=== PATIENT | male | born 1985 | race American Indian/Alaskan Native ===

== ENCOUNTER 2017-01-15 04:19 | Emergency (ER) | payer SELFPAY ==
[2017-01-15] MEDS ORDERED: NACL 0.9% 1000 ML 1,000 ML IV ONE (05:13)
[2017-01-15] MEDS ORDERED: TORADOL IV ONE (05:13)
[2017-01-15] MEDS ORDERED: ZOFRAN IV ONE (05:13)
--- NOTE | 2017-01-15 05:34 | Emergency Department Report ---
HPI - HPI HPI: 31-year-old -[place] male comes in with complaint of lower back pain 1 day. He denies any nausea no vomiting no fever no chills. Patient reports that he is having difficulty urinating as well. He reports that the pain comes and goes. He reports no past medical history currently takes no medications has no known drug allergies <DEBLAKISHABEVERLEY Smith - Last Filed: 01/15/17 07:02> <ALISSA TURNER - Last Filed: 01/15/17 07:18> - General Chief Complaint: Back Pain/Injury Time Seen by Provider: 01/15/17 05:12 ED Past Medical Hx - Past Medical History Previous Medical History?: Yes Hx Asthma: Yes - Surgical History Past Surgical History?: No - Social History Smoking Status: Never Smoker Substance Use Type: Alcohol <DEBLAKISHARAJANFredi Smith - Last Filed: 01/15/17 07:02> <ALISSA TURNER - Last Filed: 01/15/17 07:18> - Medications Home Medications: Home Medications Medication Instructions Recorded Confirmed Last Taken Type Ibuprofen [Motrin 800 MG tab] 800 mg PO Q8HR PRN #30 tablet 01/15/17 Unknown Rx ED Review of Systems ROS: Stated complaint: LOWER BACK PAIN Other details as noted in HPI Constitutional: chills. denies: fever Eyes: denies: eye pain, eye discharge, vision change ENT: denies: ear pain, throat pain Respiratory: denies: cough, shortness of breath, wheezing Cardiovascular: denies: chest pain, palpitations Endocrine: no symptoms reported Gastrointestinal: denies: abdominal pain, nausea, diarrhea Genitourinary: urgency Musculoskeletal: back pain Skin: denies: rash, lesions Neurological: denies: headache, weakness, paresthesias Psychiatric: denies: anxiety, depression <DEBLAKISHARAJANFredi Luis - Last Filed: 01/15/17 07:02> ROS: Stated complaint: LOWER BACK PAIN Other details as noted in HPI <ALISSA TURNER - Last Filed: 01/15/17 07:18> Physical Exam - Physical Exam Vital Signs: Vital Signs 01/15/17 04:31 Temperature 98.2 F Pulse Rate 91 H Respiratory 20 Rate Blood Pressure 121/74 O2 Sat by Pulse 95 Oximetry Physical Exam: GENERAL: Alert and oriented x3, no apparent to be in pain, patient is not able to get comfortable. HEAD: Head is normocephalic and a-traumatic. EYES: Extra ocular muscles are intact. Pupils are equal, round, and reactive to light and accommodation. MOUTH:Mouth is well hydrated and without lesions. Tonsils nonerythematous or swollen, Uvula midline, Tongue not elevated. Mucous membranes are moist. Posterior pharynx clear, no exudate or lesions. Patent airways. NECK: Supple. Non edematous, No carotid bruits. No lymphadenopathy or thyromegaly. LUNGS: Symetrical with respiration, No wheezing, no rales or crackles, CTAB. HEART: S1, S2 present, regular rate and rhythm without murmur, no rubs, no gallops. ABDOMEN: No organomegaly was noted,Positive bowel sounds, soft, and non- distended. . Nontender to palpation on all Quadrants, left CVA tenderness. EXTREMITIES/MUSCULOSKELETAL: No cyanosis, clubbing, rash, lesions or edema. Full ROM bilaterally. UE/LE Pulses 2+ bilaterally. LE and UE 5+ strength bilaterally NEUROLOGIC: No focal Deficit, Cranial nerves II through XII are grossly intact. No loss of sensation, No facial droop, PSYCHIATRIC: Mood is congruent with affect, denies suicidal or homicidal ideations. SKIN: Warm and dry, No lesions, No ulceration or induration present <BEVERLEY RAMIREZ - Last Filed: 01/15/17 07:02> - Physical Exam Vital Signs: Vital Signs 01/15/17 04:31 Temperature 98.2 F Pulse Rate 91 H Respiratory 20 Rate Blood Pressure 121/74 O2 Sat by Pulse 95 Oximetry <ALISSA TURNER - Last Filed: 01/15/17 07:18> ED Course Vital Signs 01/15/17 04:31 Temperature 98.2 F Pulse Rate 91 H Respiratory 20 Rate Blood Pressure 121/74 O2 Sat by Pulse 95 Oximetry <BEVERLEY RAMIREZ - Last Filed: 01/15/17 07:02> Vital Signs 01/15/17 04:31 Temperature 98.2 F Pulse Rate 91 H Respiratory 20 Rate Blood Pressure 121/74 O2 Sat by Pulse 95 Oximetry <ALISSA TURNER - Last Filed: 01/15/17 07:18> ED Medical Decision Making - Lab Data Result diagrams: 01/15/17 Unknown 01/15/17 Unknown - Radiology Data Radiology results: report reviewed No acute trauma abdominal abnormalities. There is no kidney stones. No hydro nephrosis. - Medical Decision Making Patient has been evaluated by this provider fast track. Patient appears to be uncomfortable. He may have a kidney stone. Orders consist of IV insertion, normal saline 1000 mL liters, Toradol 30 mg IV, Zofran 4 mg IV ordered. CAT scan ordered for abdomen and pelvic concern for kidney stone. <BEVERLEY RAMIREZ - Last Filed: 01/15/17 07:02> - Lab Data Result diagrams: 01/15/17 Unknown 01/15/17 Unknown <ALISSA TURNER - Last Filed: 01/15/17 07:18> Critical care attestation.: If time is entered above; I have spent that time in minutes in the direct care of this critically ill patient, excluding procedure time. <BEVERLEY RAMIREZ - Last Filed: 01/15/17 07:02> Critical care attestation.: If time is entered above; I have spent that time in minutes in the direct care of this critically ill patient, excluding procedure time. <ALISSA TURNER - Last Filed: 01/15/17 07:18> ED Disposition Is pt being admited?: No Does the pt Need Aspirin: No <BEVERLEY RAMIREZ - Last Filed: 01/15/17 07:02> <ALISSA TURNER - Last Filed: 01/15/17 07:18> Clinical Impression: Back pain Qualifiers: Back pain location: low back pain Chronicity: unspecified Back pain laterality : unspecified Sciatica presence: unspecified whether sciatica present Qualified Code(s): M54.5 - Low back pain Disposition: DISCHARGED TO HOME OR SELFCARE Condition: Stable Instructions: Back Pain (ED) Additional Instructions: Please take Motrin for back pain. Follow-up with her primary care provider for further evaluation. Prescriptions: Ibuprofen [Motrin 800 MG tab] 800 mg PO Q8HR PRN #30 tablet PRN Reason: Pain Referrals: PRIMARY CARE,MD [Primary Care Provider] - 3-5 Days [facility] [Outside] - 3-5 Days
[2017-01-15 06:01] LABS: Bilirubin,Urine Negative (Negative); Blood,Urine Negative (Negative); Ketones,Urine Negative (Negative); Protein,Urine <15 mg/dL mg/dL (Negative)
[2017-01-15 06:02] LABS: Leukocyte Esterase,Urine Negative (Negative); Mucus,Urine 1+ /HPF; Nitrite,Urine Negative (Negative); Urobilinogen,Urine < 0.2 mg/dL (<2.0)
[2017-01-15 06:11] LABS: Basophils % (Auto) 0.7 % (0.0-1.8); Eosinophils % (Auto) 0.7 % (0.0-4.3); Hematocrit 41.8 % (35.5-45.6); Hemoglobin 14.3 gm/dl (11.8-15.2); Mean Corpuscular HGB Conc 34 % (32-34); Mean Corpuscular Hemoglobin 28 pg (28-32); Mean Corpuscular Volume 82 fl (84-94); Platelet Count 278 K/mm3 (140-440); Red Cell Distribution Width 13.7 % (13.2-15.2); White Blood Count 9.6 K/mm3 (4.5-11.0)
[2017-01-15 06:43] LABS: Alanine Aminotransferase 35 units/L (7-56); Albumin 4.1 g/dL (3.9-5); Albumin/Globulin Ratio 1.1 %; Alkaline Phosphatase 53 units/L (35-129); Anion Gap 16 mmol/L; BUN/Creatinine Ratio 12.22; Blood Urea Nitrogen 11 mg/dL (9-20); Calcium 9.6 mg/dL (8.4-10.2); Carbon Dioxide 28 mmol/L (22-30); Chloride 101.6 mmol/L (98-107); Glucose 87 mg/dL (75-100); Potassium 4.2 mmol/L (3.6-5.0); Sodium 141 mmol/L (137-145)
--- NOTE | 2017-01-15 06:48 | Cat Scan Report ---
FINAL REPORT PROCEDURE: CT ABDOMEN PELVIS WO CON TECHNIQUE: Computerized axial tomography of the abdomen and pelvis was performed without intravenous contrast. This study is performed without intravascular contrast material and its sensitivity for abdominal and pelvic pathology, including neoplasms, inflammation, abscess, free fluid, thrombosis, arterial dissection and infarction, is reduced compared with a contrast enhanced study. HISTORY: lower back pain concern for kidney stone lt side pain COMPARISON: No prior studies are available for comparison. FINDINGS: Visualized lower thorax: No significant abnormality. Liver: Normal size and attenuation. Spleen: Normal size and attenuation. Gallbladder and biliary system: Normal. Pancreas: Normal. Adrenals: Normal. Kidneys: There are no kidney stones. There is no hydronephrosis.. GI tract: Is no bowel obstruction, colitis or enteritis. Appendix is normal.. Lymph nodes and mesentery: Normal. Vasculature: Normal. Bladder: Normal. Reproductive organs: Normal. Peritoneum: There is no ascites or free air, abscess or adenopathy.. Musculoskeletal structures: No significant abnormality. Other: There is a left inguinal hernia containing fat only.. IMPRESSION: No acute intra-abdominal abnormality is demonstrated. There are no kidney or ureteral stones. There is no hydronephrosis..
[2017-01-15] MEDS ORDERED: DILAUDID IV ONE (06:52)
[2017-01-15] MEDS ORDERED: DILAUDID ONE (06:53)
[2017-01-15 08:19] VITALS: BP 120/70
== END 2017-01-15 08:19 | disposition home or self-care (01) ==
LOC: ED 04:19
DX: M54.5 Low back pain (principal); J45.909 Unspecified asthma, uncomplicated
CPT/HCPCS: 36415; 74176; 80053; 81001; 85025; 96361; 96374; 96375; 99284; J1170; J1885; J2405; J7030

== ENCOUNTER 2017-03-06 18:52 | Emergency (ER) | payer SELFPAY ==
[2017-03-06] MEDS ORDERED: FUL-GLO OP ONE ×2 (22:21→22:49)
[2017-03-06] MEDS ORDERED: TETRACAINE 0.5% ONE (22:22)
--- NOTE | 2017-03-06 22:22 | Emergency Department Report ---
ED Eye Problem HPI - General Chief complaint: Eye Problems Stated complaint: ACID IN FACE Time Seen by Provider: 03/06/17 21:43 Source: patient Mode of arrival: Ambulatory Limitations: No Limitations - History of Present Illness Initial comments: 31-year-old male past medical history asthma presents with complaint of losing his eyes to dust/metal particles while at work today. 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 He was not wearing safety glasses. During handling of the battery some of this debris flew up and hit him in both eyes. Patient states that he immediately irrigated his eyes thoroughly with water and was assisted by coworkers on site. Patient states this occurred this afternoon while at work. On exam patient is awake alert and oriented 3 has both eyes open not in acute distress. Primarily complaining of slightly blurry vision since this afternoon. States he has some foreign body sensation. Patient states that his left eye has become slightly red. States he has had some watery discharge from eyes. Patient accompanied by his girlfriend chief complaint: eye redness, other (dust/metal particles hitting eyes) -: This afternoon Onset Description: sudden Location: both eyes Place: work If Injury: other (handling a battery) Eye Symptoms: discharge, blurry vision Severity: moderate If Pain, Quality: burning - Related Data Previous Rx's Medication Instructions Recorded Last Taken Type Ibuprofen [Motrin] 600 mg PO Q8H PRN #15 tablet 03/06/17 Unknown Rx Polyvinyl Alcohol/Povidone 1 - 2 drop OP PRN #1 drops 03/06/17 Unknown Rx [Artificial Tears Drops 0.5/0.6 %] Tobramycin 0.3% [Tobrex] 1 drop OU Q4H #1 bottle 03/06/17 Unknown Rx Allergies Allergy/AdvReac Type Severity Reaction Status Date / Time No Known Allergies Allergy Verified 06/08/15 04:17 ED Review of Systems ROS: Stated complaint: ACID IN FACE Other details as noted in HPI Constitutional: denies: chills, fever Eyes: denies: eye pain, eye discharge, vision change ENT: denies: ear pain, throat pain Respiratory: denies: cough, shortness of breath, wheezing Cardiovascular: denies: chest pain, palpitations Endocrine: no symptoms reported Gastrointestinal: denies: abdominal pain, nausea, diarrhea Genitourinary: denies: urgency, dysuria Musculoskeletal: denies: back pain, joint swelling, arthralgia Skin: denies: rash, lesions Neurological: denies: headache, weakness, paresthesias Psychiatric: denies: anxiety, depression Hematological/Lymphatic: denies: easy bleeding, easy bruising ED Past Medical Hx - Past Medical History Hx Asthma: Yes - Surgical History Past Surgical History?: No - Social History Smoking Status: Never Smoker Substance Use Type: Alcohol - Medications Home Medications: Home Medications Medication Instructions Recorded Confirmed Last Taken Type Ibuprofen [Motrin] 600 mg PO Q8H PRN #15 tablet 03/06/17 Unknown Rx Polyvinyl Alcohol/Povidone 1 - 2 drop OP PRN #1 drops 03/06/17 Unknown Rx [Artificial Tears Drops 0.5/0.6 %] Tobramycin 0.3% [Tobrex] 1 drop OU Q4H #1 bottle 03/06/17 Unknown Rx ED Physical Exam - General Limitations: No Limitations General appearance: alert, in no apparent distress - Head Head exam: Present: atraumatic, normocephalic - Eye Eye exam: Present: normal appearance, PERRL, EOMI - Expanded Eye Exam Expanded Pupils: Regular, Round: Bilateral, Reactive: Bilateral Sclera/Conjunctival: Injection: Bilateral (mild conjunctival injection slightly worse on the left and right) Visual acuity (R) = 20/: 40 Visual acuity (L) = 20/: 30 With correction: No IOP (R) in mmH IOP (L) in mmH IOP measured with: Tonopen - ENT ENT exam: Present: mucous membranes moist - Neck Neck exam: Present: normal inspection - Respiratory Respiratory exam: Present: normal lung sounds bilaterally. Absent: respiratory distress - Cardiovascular Cardiovascular Exam: Present: regular rate, normal rhythm. Absent: systolic murmur, diastolic murmur, rubs, gallop - GI/Abdominal GI/Abdominal exam: Present: soft, normal bowel sounds - Rectal Rectal exam: Present: deferred - Extremities Exam Extremities exam: Present: normal inspection - Back Exam Back exam: Present: normal inspection - Neurological Exam Neurological exam: Present: alert, oriented X3 - Psychiatric Psychiatric exam: Present: normal affect, normal mood - Skin Skin exam: Present: warm, dry, intact, normal color. Absent: rash ED Course Vital Signs 03/06/17 19:22 Temperature 98.3 F Pulse Rate 76 Respiratory 16 Rate Blood Pressure 134/91 O2 Sat by Pulse 97 Oximetry ED Medical Decision Making - Medical Decision Making A/P: Corneal abrasions 1-no foreign body detected during my eye exam. Pupils are reactive to light bilaterally extraocular movements are fully intact bilaterally ,No highlighted foreign body on fluorescein stain either eye, no Vinnie sign on exam, visible abrasions on conjunctiva and lower aspect of both eyes. Not overlying the pupil region. Patient states he irrigated both eyes thoroughly immediately after exposure to these dust/rust particles. Intraocular pressure 12 right eye , 15 left eye. I applied pH paper to both eyes and it is in the range of 7 in both eyes. 2-tobramycin drops, artificial tears 3-patient's gross vision is intact, overall vision is 20/30 4- I advised patient to follow-up with an front desk supervisor and to return to the ED for any significant decrease in vision. Patient states he understood my instructions 5- tetanus updated today Critical care attestation.: If time is entered above; I have spent that time in minutes in the direct care of this critically ill patient, excluding procedure time. ED Disposition Clinical Impression: Corneal abrasion Qualifiers: Encounter type: initial encounter Laterality: unspecified laterality Qualified Code(s): S05.00XA - Injury of conjunctiva and corneal abrasion without foreign body, unspecified eye, initial encounter Disposition: -01 TO HOME OR SELFCARE Is pt being admited?: No Does the pt Need Aspirin: No Condition: Stable Instructions: Corneal Abrasion (ED) Prescriptions: Ibuprofen [Motrin] 600 mg PO Q8H PRN #15 tablet PRN Reason: Pain Polyvinyl Alcohol/Povidone [Artificial Tears Drops 0.5/0.6 %] 1 - 2 drop OP PRN #1 drops Tobramycin 0.3% [Tobrex] 1 drop OU Q4H #1 bottle Referrals: MARÍA ELENA VILCHIS MD [Staff Physician] - 3-5 Days HEATHER RAMACHANDRAN MD [Staff Physician] - 3-5 Days Forms: Accompanied Note, Work/School Release Form(ED) Time of Disposition: 22:52
[2017-03-06] MEDS ORDERED: BOOSTRIX IM ONE (22:49)
[2017-03-06] MEDS ORDERED: TETRACAINE 0.5% OU ONE (22:49)
[2017-03-06 23:07] VITALS: BP 139/83
== END 2017-03-06 23:00 | disposition home or self-care (01) ==
LOC: ED 18:52
DX: S05.02XA Injury of conjunctiva and corneal abrasion without foreign body, left eye, initial encounter (principal); S05.01XA Injury of conjunctiva and corneal abrasion without foreign body, right eye, initial encounter; J45.909 Unspecified asthma, uncomplicated; X58.XXXA Exposure to other specified factors, initial encounter; Y93.89 Activity, other specified; Y92.89 Other specified places as the place of occurrence of the external cause; Y99.8 Other external cause status
CPT/HCPCS: 90471; 90715